=== PATIENT | male | born 1960 | race Caucasian/White ===

== ENCOUNTER 2017-10-09 11:24 | Day surgery (SDC) | payer OTHER ==
[2017-10-06 15:47] VITALS: BMI 25.0
--- NOTE | 2017-10-09 14:26 | OP ---
Operative Note - Note: Operative Date: 10/09/17 Pre-Operative Diagnosis: Left kidney stone Operation: Left ESWL Findings: 6 mm lower pole Left kidney calculi Surgeon: Josh Dominique (no intraoperative complication) Estimated Blood Loss (mls): 0
[2017-10-09 15:29] VITALS: BP 115/72; PULSE 68; TEMP 97.7
--- NOTE | 2017-10-09 22:30 | OP ---
DATE OF OPERATION: 10/09/2017 PREOPERATIVE DIAGNOSIS: Left renal stone. POSTOPERATIVE DIAGNOSIS: Left renal stone. PROCEDURE: Left extracorporeal shock wave lithotripsy. ATTENDING: Jimmie Ng MD ANESTHESIA: Fractional. DESCRIPTION OF OPERATION: Patient was brought in the operating room, placed in supine position on the operating room table. Ultrasonography and fluoroscopy were performed. A 6-mm left lower pole stone was identified. Anesthesia and antibiotics were then administered. Shock wave lithotripsy was then started; 2500 impulses at 17 joules of power were administered to the stone with excellent fragmentation under real-time ultrasonography and fluoroscopy. No complications were noted. The disposition of the patient was to the recovery room. JIMMIE NG M.D. [id number]
== END 2017-10-09 15:25 | disposition home or self-care (01) ==
LOC: JASU-SURG 11:24
PROVIDERS: ATTEND Urology
PROC: 0TF4XZZ Fragmentation in Left Kidney Pelvis, External Approach (ICD-10-PCS; principal; 2017-10-09 13:15)
DX: N20.0 Calculus of kidney (principal)